=== PATIENT | male | born 1970 | race African-American/Black ===

== ENCOUNTER 2025-07-07 17:56 | Emergency (ER) | payer OTHER ==
[~2025-07-07] VITALS: Ht 175.3 cm; Wt 89.0 kg
[2025-07-07 18:35] VITALS: O2SAT 97
[2025-07-07] MEDS ORDERED: LIDO-53 TP (19:56)
[2025-07-07] MEDS ORDERED: ACET-2708 MT (19:56)
[2025-07-07] MEDS: LIDOCAINE 5% PATCH TOP SCH (20:38)
[2025-07-07] MEDS: KETOROLAC 30MG/ML VIAL IM ONE (20:39)
[2025-07-07 20:40] VITALS: BP 140/87; PULSE 65; RESP 16; TEMP 36.8; O2SAT 99
== END 2025-07-07 20:45 | disposition home or self-care (01) ==
LOC: ER 17:56
DX: I10 Essential (primary) hypertension (principal); V49.40XA Driver injured in collision with unspecified motor vehicles in traffic accident, initial encounter; Y93.89 Activity, other specified; Y92.89 Other specified places as the place of occurrence of the external cause; Y99.8 Other external cause status
CPT/HCPCS: 99283; 73130; 96372; J1885